=== PATIENT | male | born 1950 | race Caucasian/White ===

== ENCOUNTER 2019-10-01 11:50 | Inpatient (IN) | payer OTHER ==
[~2019-10-01] VITALS: Ht 175.3 cm; Wt 86.9 kg
[2019-10-01 11:52] VITALS: BP 105/70
[2019-10-01 12:07] LABS: HEMATOCRIT 41.5 % (42.0-52.0); HEMOGLOBIN 14.7 gm/dL (14.0-18.0); MCH 31.6 pg (26.0-34.0); MCHC 35.6 g/dL (28.0-37.0); MCV 88.8 fL (80.0-100.0); MPV 8.9 fl. (7.2-11.1); NUCLEATED RBCS 0 /100WBC; PLATELET COUNT* 131 thou/uL (150-400); RBC 4.67 mil/uL (4.50-6.00); RDW-CV 14.3 % (10.5-14.5); WBC 13.4 thou/uL (4.0-11.0)
[2019-10-01 12:20] LABS: CALCIUM 8.5 mg/dL (8.5-10.1)
[2019-10-01 12:21] LABS: POTASSIUM 2.9 mmol/L (3.5-5.1)
[2019-10-01 12:23] LABS: APTT 31.5 Seconds (25.0-31.3); INR 1.2
[2019-10-01 12:36] LABS: ALBUMIN 3.4 g/dL (3.4-5.0); CK-MB MASS 4.7 ng/mL (<0.5-3.6); MAGNESIUM 1.4 mg/dL (1.8-2.4); TOTAL BILIRUBIN 2.6 mg/dL (<0.1-1.0); TOTAL PROTEIN 7.4 g/dL (6.4-8.2)
[2019-10-01 12:46] LABS: ABSOLUTE LYMPHOCYTES 0.8 thou/uL (0.8-5.3); ABSOLUTE MONOCYTES 0.1 thou/uL (0.0-1.2); ABSOLUTE NEUTROPHILS 12.5 thou/uL (1.6-8.1); ANISOCYTOSIS 1+; PLATELET ESTIMATE DECREASED; POIKILOCYTOSIS 1+
[2019-10-01 13:54] LABS: URINE BILIRUBIN NEGATIVE (Negative); URINE BLOOD 3+ (Negative); URINE CLARITY CLEAR; URINE COLOR YELLOW; URINE GLUCOSE-RANDOM NEGATIVE (Negative); URINE KETONES NEGATIVE (Negative); URINE LEUKOCYTES-REFLEX NEGATIVE (Negative); URINE NITRITE-REFLEX NEGATIVE (Negative); URINE PROTEIN 2+ (Negative); URINE SPECIFIC GRAVITY 1.015 (1.005-1.030)
[2019-10-01 14:02] LABS: BACTERIA-REFLEX 1-9 Few /HPF (None Seen); CASTS None Seen /LPF (None Seen); CRYSTALS None Seen /LPF (None Seen); SQUAMOUS 0-3 Few /LPF (0-3); URINE RBC 0-2 Rare /HPF (0-2); URINE WBC-REFLEX 0-5 Rare /HPF (0-5)
[2019-10-01 14:34] LABS: INFLUENZA A ANTIGEN Negative (Negative); INFLUENZA B ANTIGEN Negative (Negative)
--- NOTE | 2019-10-01 16:51 | EKG ---
[place] [address] ELECTROCARDIOGRAM REPORT Name: PERRINJOIE Room: [place] [address] ADM IN [facility].#: [id number] Admission: 10/01/19 Attend Phys: Shyla Liu, Discharge: Date of : 54 Date of Service: 10/01/19 1153 Report #: [id number] THIS REPORT FOR: //name// [facility] ED Test Date: 2019-10-01 Test Time: 11:53:58 Pat Name: JOIE PERRIN Department: Room: [facility] Gender: M Casino Attendant: : 1950 Requested By: Kole Prescott Order Number: [id number] MD: Berry Mortensen Measurements Intervals [place] Rate: 178 P: 150 DC: 90 QRS: -49 QRSD: 99 T: -66 QT: 297 QTc: 512 Interpretive Statements Supraventricular tachycardia Left axis deviation Repolarization abnormality, prob rate related No previous ECG available for comparison Electronically Signed On 10-01-2019 16:50:06 HVAC RESIDENTIAL SERVICE TECHNICIAN by Berry Mortensen [email or web address] <ELECTRONICALLY SIGNED> By: Berry Mortensen MD, [facility] 10/01/19 1650 1153 1153 Berry Mortensen MD, [facility] /EPI
[2019-10-01 18:17] VITALS: BP 134/76
[2019-10-01 21:37] VITALS: BP 104/68
[2019-10-02 00:03] VITALS: BP 89/62
[2019-10-02 04:33] LABS: HEMATOCRIT 34.4 % (42.0-52.0); MCH 31.5 pg (26.0-34.0); MCHC 35.1 g/dL (28.0-37.0); MCV 89.8 fL (80.0-100.0); MPV 9.4 fl. (7.2-11.1); RBC 3.83 mil/uL (4.50-6.00); RDW-CV 14.1 % (10.5-14.5); WBC 8.8 thou/uL (4.0-11.0)
[2019-10-02 04:38] VITALS: BP 113/52
[2019-10-02 04:44] LABS: HEMOGLOBIN 12.1 gm/dL (14.0-18.0)
[2019-10-02 05:07] LABS: ALBUMIN 2.6 g/dL (3.4-5.0); ALKALINE PHOSPHATASE 49 U/L (46-116); ANION GAP 8 mmol/L (7-16); CALCIUM 7.5 mg/dL (8.5-10.1); CHLORIDE 108 mmol/L (98-107); CHOLESTEROL 138 mg/dL (<200); CO2 25 mmol/L (21-32); CREATININE 1.3 mg/dL (0.6-1.3); GLUCOSE 90 mg/dL (70-99); HDL CHOLESTEROL 22 mg/dL (>40); LDL CHOLESTEROL 97 mg/dL (<100); POTASSIUM 3.4 mmol/L (3.5-5.1); SGOT 51 U/L (15-37); SGPT 19 U/L (30-65); SODIUM 141 mmol/L (136-145); TC:HDL 6.3 Ratio (Not establshd); TRIGLYCERIDE 99 mg/dL (<150); VLDL 20 mg/dL (<40)
[2019-10-02 05:46] LABS: BUN 20 mg/dL (7-18); MAGNESIUM 1.8 mg/dL (1.8-2.4)
[2019-10-02 05:47] LABS: SERUM ASSESSMENT CLEAR
[2019-10-02 08:44] VITALS: BP 116/74
[2019-10-02 10:46] LABS: MAGNESIUM 1.7 mg/dL (1.8-2.4); POTASSIUM 3.8 mmol/L (3.5-5.1)
[2019-10-02 12:00] VITALS: BP 103/67
--- NOTE | 2019-10-02 14:18 | EKG ---
[place] [address] ELECTROCARDIOGRAM REPORT Name: JOIE PERRIN Room: [address] IN .R.#: [id number] Admission: 10/01/19 Attend Phys: Shyla Liu, Discharge: Date of : 54 Date of Service: 10/02/19900 Report #: [id number] THIS REPORT FOR: //name// [facility] Test Date: 2019-10-02 Test Time: 09:01:32 Pat Name: JOIE PERRIN Department: Room: [facility] Gender: M Hide Salter: : 1950 Requested By: Berry Mortensen Order Number: [id number] Reading MD: Berry Mortensen Measurements Intervals [place] Rate: 83 P: 39 [place]: 176 QRS: 26 QRSD: 105 T: 37 QT: 356 QTc: 419 Interpretive Statements Sinus rhythm Abnormal R-wave progression, early transition Compared to ECG 10/01/2019 11:53:58 Supraventricular tachycardia no longer present Left-axis deviation no longer present Early repolarization no longer present Electronically Signed On 10-02-2019 14:17:45 SEAMING MACHINE OPERATOR by Berry Mortensen [email or web address] <ELECTRONICALLY SIGNED> By: Berry Mortensen MD, [facility] 10/02/19 1417 0 0901 Berry Mortensen MD, [facility] /EPI
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
[2019-10-02 16:00] VITALS: BP 128/79
--- NOTE | 2019-10-02 16:39 | 2DMMODE ---
[place] [address] 2 D/M-MODE ECHOCARDIOGRAM Name: JOIE PERRIN Room: [address] IN [facility]#: [id number] Admission: 10/01/19 Attend Phys: Shyla Liu, Discharge: Date of : 54 Date of Service: 10/02/19 1638 Report #: [id number] THIS REPORT FOR: cc: Physician not on staff Physician not on staff Aníbal Vasquez MD [facility] ~ ADDENDUM APPROVED REPORT Study performed: 10/02/2019 09:58:11 EXAM: Comprehensive 2D, Doppler, and color-flow Echocardiogram Patient Location: In-Patient Room #: [facility] Status: routine BSA: 2.03 HR: 84 bpm BP: 113/52 mmHg Rhythm: NSR Other Information Study Quality: Good Indications Atrial Fibrillation Dyspnea 2D Dimensions IVSd: 10.45 (7-11mm) LVOT Diam: 23.40 (18-24mm) LVDd: 47.18 mm PWd: 10.50 (7-11mm) Ascending Ao: 42.22 (22-36mm) LVDs: 31.94 (25-40mm) Aortic Root: 41.01 mm Volumes Left Atrial Volume (Systole) LA ESV Index: 28.50 mL/m2 Aortic Valve AoV Peak Edward.: 1.63 m/s AO Peak Gr.: 10.65 mmHg LVOT Max P.83 mmHg AO Mean Gr.: 6.29 mmHg LVOT Mean P.82 mmHg LVOT Max V: 1.21 m/s AO V2 VTI: 28.03 cm LVOT Mean V: 0.77 m/s CASANDRA (VTI): 3.52 cm2 LVOT V1 VTI: 22.96 [place] [address] 2 D/M-MODE ECHOCARDIOGRAM Name: JOIE PERRIN Room: [address] IN ..#: [id number] Admission: 10/01/19 Attend Phys: Shyla Liu, Discharge: Date of : 54 Date of Service: 10/02/19 1638 Report #: [id number] Mitral Valve E/A Ratio: 1.10 MV Decel. Time: 238.56 ms MV E Max Edward.: 0.75 m/s MV PHT: 69.18 ms MVA (PHT): 3.18 cm2 TDI E/Lateral E': 7.50 E/Medial E': 6.25 Medial E' Edward.: 0.12 m/s Lateral E' Edward.: 0.10 m/s Pulmonary Valve PV Peak Edward.: 1.13 m/s PV Peak Gr.: 5.11 mmHg Tricuspid Valve RAP Estimate: 5.00 mmHg TR Peak Gr.: 22.18 mmHg RVSP: 27.00 mmHg PA Pressure: 27.00 mmHg Left Ventricle The left ventricle is normal size. There is normal LV segmental wall motion. There is normal left ventricular wall thickness. Left ventricular systolic function is normal. LVEF is 65-70%. Transmitral Doppler flow pattern suggests impaired LV relaxation. Right Ventricle The right ventricle is normal size. The right ventricular systolic function is normal. Atria Left atrium is mildly dilated. Right atrium is mildly dilated. Aortic Valve The aortic valve is normal in structure. No aortic regurgitation is present. There is no aortic valvular stenosis. Mitral Valve The mitral valve is normal in structure. There is no mitral valve regurgitation noted. No evidence of mitral valve stenosis. Tricuspid Valve The tricuspid valve is normal in structure. Mild tricuspid regurgitation. [place] [address] 2 D/M-MODE ECHOCARDIOGRAM Name: JOIE PERRIN Room: [address]#: [id number] Admission: 10/01/19 Attend Phys: Shyla Liu, Discharge: Date of : 54 Date of Service: 10/02/19 1638 Report #: [id number] Pulmonic Valve The pulmonary valve is normal in structure. There is no pulmonic valvular regurgitation. Great Vessels The aortic root is normal in size. The aortic root is moderately dilated. (4.2 cm) IVC is normal in size and collapses >50% with inspiration. Pericardium There is no pericardial effusion. <Conclusion> The left ventricle is normal size. There is normal left ventricular wall thickness. Left ventricular systolic function is normal. LVEF is 65-70%. Transmitral Doppler flow pattern suggests impaired LV relaxation. Left atrium is mildly dilated. Right atrium is mildly dilated. Mild tricuspid regurgitation. No pulmonary hypertension. IVC is normal in size and collapses >50% with inspiration. The aortic root is moderately dilated. (4.2 cm) <ELECTRONICALLY SIGNED> By: Aníbal Vasquez MD, FACC 10/02/19 1638 1638 1638 Aníbal Vasquez MD, FACC /INF
[2019-10-02 19:50] VITALS: BP 151/78
[2019-10-03] VITALS: BP 125/81
[2019-10-03 02:06] LABS: GLYCOHEMOGLOBIN (HGB A1C) 5.4 % (4.8-5.6)
[2019-10-03 04:00] VITALS: BP 127/80
[2019-10-03 09:00] VITALS: BP 136/94
--- NOTE | 2019-10-03 10:21 | EKG ---
[place] [address] ELECTROCARDIOGRAM REPORT Name: JOIE PERRIN Room: [address] ADM IN M.R.#: [id number] Admission: 10/01/19 Attend Phys: Shyla Liu, Discharge: Date of : 54 Date of Service: 10/03/19 0818 Report #: [id number] THIS REPORT FOR: //name// [facility] Test Date: 2019-10-03 Test Time: 08:18:53 Pat Name: JOIE PERRIN Department: Room: [address] Gender: M Swedger: : 1950 Requested By: Berry Mortensen Order Number: [id number] Reading MD: Berry Mortensen Measurements Intervals [place] Rate: 75 P: 50 [place]: 193 QRS: 23 QRSD: 99 T: 33 QT: 353 QTc: 395 Interpretive Statements Sinus rhythm Multiple premature complexes, vent & supraven Borderline low voltage, extremity leads Abnormal R-wave progression, early transition Compared to ECG 10/02/2019 09:01:32 pac and pvc noted Electronically Signed On 10-03-2019 10:20:45 SUPPORT TEAM MEMBER by Berry Mortensen [email or web address] <ELECTRONICALLY SIGNED> By: Berry Mortensen MD, [facility] 10/03/19 1020 7 7 Berry Mortensen MD, [facility] /EPI
[2019-10-03 12:00] VITALS: BP 156/87
[2019-10-03 16:00] VITALS: BP 141/94
[2019-10-03 19:50] VITALS: BP 147/81
[2019-10-04 00:36] VITALS: BP 138/91
[2019-10-04 04:32] VITALS: BP 135/83
[2019-10-04 05:24] LABS: HEMATOCRIT 36.1 % (42.0-52.0); HEMOGLOBIN 12.5 gm/dL (14.0-18.0); MCH 31.3 pg (26.0-34.0); MCHC 34.7 g/dL (28.0-37.0); MPV 8.9 fl. (7.2-11.1); RBC 4.01 mil/uL (4.50-6.00); WBC 5.4 thou/uL (4.0-11.0)
[2019-10-04 06:18] LABS: CALCIUM 8.8 mg/dL (8.5-10.1); CREATININE 1.2 mg/dL (0.6-1.3); POTASSIUM 3.7 mmol/L (3.5-5.1)
[2019-10-04 07:55] LABS: MAGNESIUM 1.5 mg/dL (1.8-2.4)
[2019-10-04 08:00] VITALS: BP 130/93
[2019-10-04 11:55] VITALS: BP 130/93
[2019-10-04] MEDS ORDERED: LIDOPATCH1 EACH TOP (12:35)
[2019-10-04] MEDS ORDERED: LEVAQUIN 500 M500 M3 PO (12:35)
== END 2019-10-04 13:14 | disposition home or self-care (01) | DRG 871 ==
LOC: EDBD 11:50 → M.ERS 11:50 → M.2W 14:05 → M.TBA-ER 14:05 → M.2W 18:31
PROVIDERS: Family Medicine; Internal Medicine Cardiovascular Disease; ADMIT Internal Medicine
DX: A41.9 Sepsis, unspecified organism (principal); N17.1 Acute kidney failure with acute cortical necrosis; J15.6 Pneumonia due to other Gram-negative bacteria; M62.82 Rhabdomyolysis; R65.20 Severe sepsis without septic shock; I48.91 Unspecified atrial fibrillation; E87.6 Hypokalemia; E78.5 Hyperlipidemia, unspecified; E87.5 Hyperkalemia; F17.210 Nicotine dependence, cigarettes, uncomplicated; I95.9 Hypotension, unspecified; R73.9 Hyperglycemia, unspecified; M48.02 Spinal stenosis, cervical region; Z79.2 Long term (current) use of antibiotics; Z90.49 Acquired absence of other specified parts of digestive tract; Z86.61 Personal history of infections of the central nervous system; Z88.6 Allergy status to analgesic agent; Z88.5 Allergy status to narcotic agent